=== PATIENT | male | born 1965 | race Asian ===

== ENCOUNTER 2024-02-06 08:52 | Day surgery (SDC) | payer MEDICAID ==
[~2024-02-06] VITALS: Ht 167.6 cm; Wt 111.1 kg
[2024-02-06] MEDS ORDERED: MEPERIDINE 100 MG INJ. 100 MG/ML VIAL ONE (10:27)
[2024-02-06] MEDS ORDERED: MIDAZOLAM HCL 5 MG/5 ML VIAL ONE ×2 (10:27→10:45)
[2024-02-06] MEDS ORDERED: DIPHENHYDRAMINE INJ 50 MG/ML VIAL ONE (10:47)
[2024-02-06 14:02] VITALS: O2SAT 99
[2024-02-06 16:30] VITALS: BP_SYST 90; PULSE 70; RESP 20
== END 2024-02-06 12:40 | disposition home or self-care (01) ==
LOC: SDS 08:52 → SMU 08:53 → SDS 12:40
PROVIDERS: ATTEND Internal Medicine Gastroenterology
DX: Z08 Encounter for follow-up examination after completed treatment for malignant neoplasm (principal); D12.0 Benign neoplasm of cecum; K63.5 Polyp of colon; F17.210 Nicotine dependence, cigarettes, uncomplicated; K57.30 Diverticulosis of large intestine without perforation or abscess without bleeding; K64.8 Other hemorrhoids; Z79.899 Other long term (current) drug therapy; Z85.038 Personal history of other malignant neoplasm of large intestine; Z80.0 Family history of malignant neoplasm of digestive organs
CPT/HCPCS: 45380; 45385; 82948; 88305; 99152; 99153; G0378; J1200; J2250; J2175